=== PATIENT | male | born 1965 | race Caucasian/White ===

== ENCOUNTER → 2016-08-07 | Outpatient (CLI) | payer OTHER ==
[2016-08-07 12:49] LABS: Blood Urea Nitrogen 18 mg/dL (9-20); Lithium <0.2 mmol/L; Non-African American GFR(MDRD) >60 (>60 ml/min/1.73 sqM)
== END | disposition home or self-care (01) ==
LOC: LABWHC1 12:13
PROVIDERS: ATTEND Psychiatry & Neurology Psychiatry
DX: Z51.81 Encounter for therapeutic drug level monitoring (principal); Z79.899 Other long term (current) drug therapy
CPT/HCPCS: 36415; 80178; 82565; 84439; 84443; 84520

== ENCOUNTER 2016-10-27 16:26 | Emergency (ER) | payer OTHER ==
[2016-10-27 16:34] VITALS: BP 128/77; PULSE 88; RESP 18; TEMP 99.9
--- NOTE | 2016-10-27 16:44 | ED ---
General Adult HPI - General Chief complaint: Extremity Problem,Nontraumatic Stated complaint: Infection on hand Time Seen by Provider: 10/27/16 16:35 Source: patient, RN notes reviewed Mode of arrival: ambulatory Limitations: no limitations - History of Present Illness Initial comments: 51-year-old male presents emergency department with a chief complaint of right middle finger infection. Patient states he has some pus coming out of the infection today so he was concerned. He has noticed some redness coming off the area. Patient states he initially was injured by his dog leash and now it seems. Patient denies any cough cold runny nose with this. Patient denies any fever chills. Patient states he was concerned due to his symptoms so he thought that he should be evaluated. Patient denies any recent fever, chills, shortness of breath, chest pain, back pain, abdominal pain, nausea vomiting, numbness or tingling, dysuria or hematuria, constipation or diarrhea, headaches or visual changes, or any other current symptoms. - Related Data Previous Rx's Medication Instructions Recorded Cephalexin [Keflex] 500 mg PO Q6HR #40 cap 10/27/16 Sulfamethox-Tmp 800-160Mg [Bactrim 2 each PO Q12HR #56 tab 10/27/16 DS 800-160 mg] Allergies Allergy/AdvReac Type Severity Reaction Status Date / Time lurasidone [From Latuda] Allergy Unknown Verified 10/27/16 16:35 Review of Systems ROS Statement: Those systems with pertinent positive or pertinent negative responses have been documented in the HPI. ROS Other: All systems not noted in ROS Statement are negative. Past Medical History Past Medical History: Osteoarthritis (OA) Additional Past Medical History / Comment(s): chronic back pain, DDD, scoliosis , hairline fx to back History of Any Multi-Drug Resistant Organisms: None Reported Past Surgical History: No Surgical Hx Reported Past Psychological History: No Psychological Hx Reported, Bipolar Smoking Status: Current every day smoker Past Alcohol Use History: None Reported Past Drug Use History: None Reported General Exam - General Exam Comments Initial Comments: General: The patient is awake and alert, in no distress, and does not appear acutely ill. Neck: The neck is supple, there is no tenderness. Cardiovascular: There is a regular rate and rhythm. No murmur, rub or gallop is appreciated. Respiratory: Lungs are clear to auscultation, respirations are non-labored, breath sounds are equal. No wheezes, stridor, rales, or rhonchi. Musculoskeletal: Sensation intact with 2+ pulses at that time. full Range of motion of right elbow and right wrist and right hand. Patient does appear to have an area of fluctuation to the right lateral middle finger. 5/5 Muscle strength testing. No tenderness along the tendon. Minimal redness surrounding the area. Neurological: CN II-XII intact, There are no obvious motor or sensory deficits. Coordination appears grossly intact. Speech is normal. Skin: Skin is warm and dry and no rashes or lesions are noted. Psychiatric: Normal mood and affect. Limitations: no limitations Course Vital Signs 10/27/16 16:31 Temperature 99.9 F H Pulse Rate 88 Respiratory 18 Rate Blood Pressure 128/77 O2 Sat by Pulse 95 Oximetry Medical Decision Making - Medical Decision Making 51-year-old male presents with what appears to be a right middle finger infection. This time we did start the patient on antibiotics. We discussed follow-up we discussed return parameters. We discussed all patient's questions. He stated he understood any significant plan. Discharged home. Disposition Clinical Impression: Superficial injury of right middle finger with infection Disposition: HOME SELF-CARE Condition: Stable Instructions: Abscess (ED) Additional Instructions: Please use medication as discussed. Please follow up with family doctor if symptoms have not improved over the next two days. Please return to the emergency room if your symptoms increase or worsen or for any other concerns. Prescriptions: Cephalexin [Keflex] 500 mg PO Q6HR #40 cap Sulfamethox-Tmp 800-160Mg [Bactrim DS 800-160 mg] 2 each PO Q12HR #56 tab Referrals: Misael Moffett MD [Primary Care Provider] - 1-2 days Time of Disposition: 16:43
== END 2016-10-27 17:04 | disposition home or self-care (01) ==
LOC: EC 16:26
DX: S60.942A Unspecified superficial injury of right middle finger, initial encounter (principal); L08.9 Local infection of the skin and subcutaneous tissue, unspecified; F17.200 Nicotine dependence, unspecified, uncomplicated; Z88.8 Allergy status to other drugs, medicaments and biological substances; W22.8XXA Striking against or struck by other objects, initial encounter
CPT/HCPCS: 99283

== ENCOUNTER → 2016-12-27 | Outpatient (CLI) | payer OTHER ==
[2016-12-27 11:50] LABS: Basophils % (A) 1 %; CH 30.1; CHCM 32.6; Eosinophils # (A) 0.2 k/uL (0-0.7); Eosinophils % (A) 3 %; HCT 41.3 % (39.0-53.0); HDW 2.33; HGB 13.9 gm/dL (13.0-17.5); Luc # (Auto) 0.14; Luc % (Auto) 2; Lymphocytes # (A) 1.9 k/uL (1.0-4.8); Lymphocytes % (A) 25 %; MCH 31.3 pg (25.0-35.0); MCHC 33.8 g/dL (31.0-37.0); MCV 92.7 fL (80.0-100.0); Mean Platelet Volume 7.6; Monocytes # (A) 0.4 k/uL (0-1.0); Monocytes % (A) 6 %; Neutrophils # (A) 4.7 k/uL (1.3-7.7); Neutrophils % (A) 63 %; RBC 4.45 m/uL (4.30-5.90); RDW 13.4 % (11.5-15.5); WBC 7.4 k/uL (3.8-10.6); WBC (Perox) 8.08
[2016-12-27 12:08] LABS: Lithium 0.3 mmol/L
== END | disposition home or self-care (01) ==
LOC: LABWHC1 11:01
PROVIDERS: ATTEND Nurse Practitioner
DX: F31.5 Bipolar disorder, current episode depressed, severe, with psychotic features (principal); F43.10 Post-traumatic stress disorder, unspecified; Z79.899 Other long term (current) drug therapy
CPT/HCPCS: 36415; 80061; 80178; 82306; 84439; 84443; 85025

== ENCOUNTER → 2017-09-23 | Outpatient (CLI) | payer OTHER ==
[2017-09-23 19:47] LABS: HIV AB P24 Non-Reactive (Non-Reactive); HIV P24 AG Non-Reactive (Non-Reactive)
[2017-09-24 11:50] LABS: T4/T8 Ratio (CD4:CD8) 1.6 (1.0-3.7)
[2017-09-26 16:46] LABS: HIV-1 RNA Not detected (Not detected); HIV-1 RNA, Quant <40 Copies/mL (<40)
== END | disposition home or self-care (01) ==
LOC: LABWHC1 13:51
PROVIDERS: ATTEND Internal Medicine Infectious Disease
DX: B20 Human immunodeficiency virus [HIV] disease (principal)
CPT/HCPCS: 36415; 86360; 87390; 87536

== ENCOUNTER → 2017-10-31 | Outpatient (CLI) | payer OTHER ==
--- NOTE | 2017-10-31 10:34 | XR ---
EXAMINATION TYPE: XR knee complete bilateral DATE OF EXAM: 10/31/2017 COMPARISON: NONE HISTORY: Pain TECHNIQUE: Four views are submitted. FINDINGS: Mild narrowing the medial compartment knee joint and patellofemoral joint bilaterally. Osseous struct ures are intact. No acute fracture seen. IMPRESSION: 1. No acute fracture or dislocation. 2. Mild bilateral arthropathy.
== END | disposition home or self-care (01) ==
LOC: RADXRMAIN 09:27
PROVIDERS: ATTEND Nurse Practitioner
DX: M12.862 Other specific arthropathies, not elsewhere classified, left knee (principal); M12.861 Other specific arthropathies, not elsewhere classified, right knee; M23.50 Chronic instability of knee, unspecified knee

== ENCOUNTER → 2017-11-15 | Outpatient (CLI) | payer OTHER ==
[2017-11-15 10:36] LABS: ALT 47 U/L (21-72); AST 23 U/L (17-59); Albumin 4.3 g/dL (3.5-5.0); Alkaline Phosphatase 101 U/L (38-126); Anion Gap 8 mmol/L; Blood Urea Nitrogen 17 mg/dL (9-20); Calcium 9.5 mg/dL (8.4-10.2); Carbon Dioxide 25 mmol/L (22-30); Chloride 107 mmol/L (98-107); Glucose 100 mg/dL (74-99); Potassium 4.9 mmol/L (3.5-5.1); Sodium 140 mmol/L (137-145); Total Bilirubin 0.5 mg/dL (0.2-1.3); Total Protein 6.9 g/dL (6.3-8.2)
[2017-11-15 10:52] LABS: T4, Free (Free Thyroxine) 1.03 ng/dL (0.78-2.19)
[2017-11-15 11:47] LABS: Basophils # (A) 0.1 k/uL (0-0.2); Basophils % (A) 0 %; Eosinophils # (A) 0.4 k/uL (0-0.7); Eosinophils % (A) 3 %; HCT 46.1 % (39.0-53.0); Lymphocytes # (A) 1.6 k/uL (1.0-4.8); Lymphocytes % (A) 12 %; MCH 29.3 pg (25.0-35.0); MCHC 32.6 g/dL (31.0-37.0); MCV 89.7 fL (80.0-100.0); Mean Platelet Volume 8.5; Monocytes % (A) 8 %; Neutrophils # (A) 10.5 k/uL (1.3-7.7); Neutrophils % (A) 77 %; Platelet Count 219 k/uL (150-450); RBC 5.13 m/uL (4.30-5.90); RDW 13.4 % (11.5-15.5); WBC 13.8 k/uL (3.8-10.6)
[2017-11-15 16:31] LABS: Vitamin D 25 Hydroxy 47.8 ng/mL (30.0-100.0)
== END | disposition home or self-care (01) ==
LOC: LABWHC1 09:52
PROVIDERS: ATTEND Nurse Practitioner Acute Care
DX: E55.9 Vitamin D deficiency, unspecified (principal); R53.83 Other fatigue; R41.3 Other amnesia
CPT/HCPCS: 36415; 80053; 82306; 82607; 84207; 84439; 84443; 84481; 85025

== ENCOUNTER → 2017-12-06 | Outpatient (CLI) | payer OTHER ==
--- NOTE | 2017-12-06 22:42 | MR ---
EXAMINATION TYPE: MR brain wo con DATE OF EXAM: 12/06/2017 COMPARISON: NONE HISTORY: Fell working on house 8 years ago, Headaches with bilateral weakness and numbness per patien t. Memory loss per order. TECHNIQUE: Multiplanar, multisequence imaging of the brain and brainstem is performed without IV cont rast. FINDINGS: Diffusion weighted images demonstrate no evidence of a recent infarct or other diffusion abnormality. There is no worrisome extra-axial fluid collection. There is diffuse ventricular and sulcal prominenc e consistent with mild age-related cerebral atrophy. There are scattered foci of T2 hyperintensity se en throughout the superficial and deep white matter with more prominent confluent areas in the perive ntricular white matter. Findings most likely the basis of product of chronic small vessel ischemic ch josey in patient of this age. Midline structures demonstrate normal morphology. The craniocervical junction appears within normal limits. Normal vascular flow voids are present. The visualized sinuses are clear and the globes are i ntact. IMPRESSION: Mild diffuse age-related cerebral atrophy and moderate nonspecific white matter changes f elt to be on basis of product of chronic small vessel ischemic change.
== END | disposition home or self-care (01) ==
LOC: RADMRIMAIN 15:42
PROVIDERS: ATTEND Psychiatry & Neurology Neurology
DX: G31.1 Senile degeneration of brain, not elsewhere classified (principal); R90.89 Other abnormal findings on diagnostic imaging of central nervous system; Z88.8 Allergy status to other drugs, medicaments and biological substances
CPT/HCPCS: 70551

== ENCOUNTER → 2017-12-07 | Outpatient (CLI) | payer OTHER ==
--- NOTE | 2017-12-07 18:18 | MR ---
EXAMINATION TYPE: MR lumbar spine wo con DATE OF EXAM: 12/07/2017 COMPARISON: NONE HISTORY: Fell from house back pain TECHNIQUE: T1 and T2 axial and sagittal images of the lumbar spine are submitted. FINDINGS: There is no abnormal signal seen within the visualized spinal cord or paraspinal soft tissu es. At L1-2 there is no disc herniation or canal stenosis. Hypertrophic change of the facets. No foramina l encroachment. At L2-3 there is mild disc desiccation and hypertrophic changes facets. No canal stenosis, foraminal encroachment or disc herniation. At L3-4 there is hypertrophic change of the facets. No disc herniation, canal stenosis, or foraminal encroachment. At L4-5 there is moderate facet arthropathy. There is no disc herniation. No canal stenosis or forami nal encroachment. At L5-S1 there is facet arthropathy but no disc herniation or canal stenosis. No foraminal encroachme nt. There is heterogeneous marrow signal which is nonspecific. Alignment is anatomic. There is no evidenc e of acute marrow edema. No compression deformities. There is multilevel mild disc desiccation and de generative disc disease. IMPRESSION: 1. The level mild degenerative disc disease and facet arthropathy with no evidence of canal stenosis, disc herniation or foraminal encroachment. 2. No abnormal signal to suggest active remote marrow edema. 3. The right kidney is somewhat enlarged relative to left but is only partially included on exam. Rec ommend correlation with ultrasound. 4. There is increased signal near the conus medullaris which may be artifactual. This is not included on the axial images. It is seen at the level of T12. Recommend thoracic spine MRI.
== END | disposition home or self-care (01) ==
LOC: RADMRIMAIN 15:39
PROVIDERS: ATTEND Psychiatry & Neurology Neurology
DX: M51.36 Other intervertebral disc degeneration, lumbar region (principal); M46.96 Unspecified inflammatory spondylopathy, lumbar region; R41.3 Other amnesia; Z88.8 Allergy status to other drugs, medicaments and biological substances
CPT/HCPCS: 72148

== ENCOUNTER → 2017-12-08 | Outpatient (CLI) | payer OTHER ==
--- NOTE | 2017-12-09 06:43 | MR ---
EXAMINATION TYPE: MR cspine/tspine wo con DATE OF EXAM: 12/08/2017 COMPARISON: NONE HISTORY: Neck pain and Pain in thoracic spine per order. Headache with neck pain for 6 to 7 years cau sing pain or weakness in both arms and fingers per patient. Mid back pain for 7 years from old injury per patient. TECHNIQUE: Multiplanar, multisequence imaging of the cervical and thoracic spine are performed withou t contrast FINDINGS: C-SPINE: Exam noted suboptimal due to motion artifact degradation. Repeat imaging was performed with some improvement. FINDINGS: Coronal images show levoconvex scoliosis centered in the upper thoracic spine. Sagittal mayra ges of the cervical spine show the craniocervical junction to appear within normal limits. The cervi bob and upper thoracic spinal cord is normal in course, caliber, and signal. Straightening of cervica l spine is seen upper cervical levels on sagittal images.. The vertebral body heights are normal. Th ere is moderate disc space narrowing with some posterior ossific fusion C2-C3 level. There is moderat e anterior disc space narrowing C3-C4 level. Posterior spur disc complexes are effacing anterior thec al sac C3-C4 and C5-C6 levels on sagittal images. Small hemangioma posterior superior C2 level is see n. There are heterogeneous endplate changes at C3-C4 level. Axial images at C2-C3 level shows vertical intensity felt to reflect prominent ligament, bilateral ne ural foramina are patent. Axial images at C3-C4 level show broad-based posterior spur disc complex effacing anterior thecal sac and causing moderate bilateral neural foraminal narrowing on axial image 50. Axial images at C4-C5 level are felt within normal limits. Axial images at C5-C6 level show broad-based right paracentral spur disc complex effacing anterolater al thecal sac on axial image 32, there is asymmetric mild to moderate right-sided neural foraminal na rrowing. Left-sided neural foramen is patent. Axial images at C6-C7 level show broad-based posterior disc protrusion mildly effacing anterior theca l sac, bilateral neural foramina are patent. Axial images at C7-T1 level are felt within normal limits. IMPRESSION: Straightening of cervical spine upper cervical levels. Most prominent degenerative change s C3-C4 and C5-C6 level are seen as detailed above. T-SPINE: Spinal cord shows normal course, caliber, and signal as it courses the thoracic spine. Vertebral bod y heights are satisfactory. Slight levoconvex scoliotic curvature centered in the upper thoracic spin e is present. Disc space heights are fairly well-maintained. No large posterior disc herniations are seen on sagittal images. Bone marrow signal intensity is preserved. Mild multilevel anterior spurring in the mid to lower thoracic spine is noted. Review of the axial images shows no significant spinal canal stenosis or neural foraminal narrowing a t any thoracic level. No suspicious incidental finding seen in the visualized thorax or upper abdome n. IMPRESSION: Mild multilevel anterior spurring mid to lower thoracic spine. No suspicious focal disc herniations are evident.
== END | disposition home or self-care (01) ==
LOC: RADMRIMAIN 15:40
PROVIDERS: ATTEND Psychiatry & Neurology Neurology
DX: M47.812 Spondylosis without myelopathy or radiculopathy, cervical region (principal); M46.04 Spinal enthesopathy, thoracic region; Z88.8 Allergy status to other drugs, medicaments and biological substances
CPT/HCPCS: 72141; 72146

== ENCOUNTER 2018-11-16 12:37 | Emergency (ER) | payer OTHER ==
[2018-11-16 12:47] VITALS: BP 148/88; PULSE 83; RESP 16; TEMP 97.9
[2018-11-16] MEDS ORDERED: DEXAMETHASONE SOD PHOSPHATE 10 MG/ML 1 ML VIAL IM STA (13:26)
[2018-11-16] MEDS ORDERED: PERMETHRIN 5% CREAM 60 GM TUBE TOPICAL ONE (13:26)
[2018-11-16] MEDS ORDERED: hydrOXYzine HCL 25 MG TAB PO STA (13:27)
[2018-11-16] MEDS ORDERED: FAMOTIDINE 20 MG TAB PO STA (13:27)
--- NOTE | 2018-11-16 13:28 | ED ---
Skin/Abscess/FB HPI - General Chief complaint: Skin/Abscess/Foreign Body Stated complaint: rash Time Seen by Provider: 11/16/18 12:54 Source: patient, RN notes reviewed, old records reviewed Mode of arrival: ambulatory Limitations: no limitations - History of Present Illness Initial comments: This is a 53-year-old male the ER for evaluation presents today for evaluation regards to rash. Bilateral upper extremity rash itchy rash, no known ALLERGIES complaint, patient denies any travel, fevers. Rash is itchy not painful. No other complaints MD complaint: rash (Bilateral upper extremity) -: days(s) Tetanus Up to Date: yes Location: E, RUE, L hand, R hand Severity: moderate Severity scale (1-10): 4 Quality: other (KS) Consistency: constant Improves with: none Worsens with: none Context: none Associated symptoms: denies other symptoms Treatments Prior to Arrival: none - Related Data Home Medications Medication Instructions Recorded Confirmed Albuterol Inhaler [Ventolin Hfa 2 puff INHALATION RT-Q6H PRN 11/16/18 11/16/18 Inhaler] Aspirin EC [Ecotrin Low Dose] 81 mg PO DAILY 11/16/18 11/16/18 Budesonide-Formot 160-4.5 Mcg 1 puff INHALATION RT-BID 11/16/18 11/16/18 [Symbicort 160-4.5 Mcg Inhaler] Ergocalciferol [Vitamin D2] 50,000 unit PO Q14D 11/16/18 11/16/18 Furosemide [Lasix] 20 mg PO DAILY 11/16/18 11/16/18 HYDROcodone/APAP 7.5-325MG [[place] 1 tab PO BID PRN 11/16/18 11/16/18 7.5-325] Lisinopril [Zestril] 20 mg PO DAILY 11/16/18 11/16/18 [place] Carbonate 1,200 mg PO HS 11/16/18 11/16/18 Loratadine [Claritin] 10 mg PO DAILY 11/16/18 11/16/18 Metoprolol Tartrate 25 mg PO BID 11/16/18 11/16/18 Montelukast [Singulair] 10 mg PO DAILY 11/16/18 11/16/18 OLANZapine [ZyPREXA] 5 mg PO HS 11/16/18 11/16/18 Potassium Chloride ER [K-Dur 20] 20 meq PO MOWEFR 11/16/18 11/16/18 Ranitidine HCl [Zantac] 150 mg PO BID 11/16/18 11/16/18 Varenicline [Chantix Continuing 1 mg PO BID 11/16/18 11/16/18 Pack] hydrOXYzine PAMOATE [Vistaril] 50 mg PO BID PRN 11/16/18 11/16/18 traZODone HCL [Desyrel] 200 mg PO HS 11/16/18 11/16/18 Allergies Allergy/AdvReac Type Severity Reaction Status Date / Time lurasidone [From Latuda] Allergy Unknown Verified 11/16/18 13:19 Review of Systems ROS Statement: Those systems with pertinent positive or pertinent negative responses have been documented in the HPI. ROS Other: All systems not noted in ROS Statement are negative. Past Medical History Past Medical History: Osteoarthritis (OA) Additional Past Medical History / Comment(s): chronic back pain, DDD, scoliosis, hairline fx to back History of Any Multi-Drug Resistant Organisms: None Reported Past Surgical History: No Surgical Hx Reported Past Psychological History: Bipolar Smoking Status: Current every day smoker Past Alcohol Use History: None Reported Past Drug Use History: None Reported General Exam - General Exam Comments Initial Comments: She is in threes both upper extremities. Again nature with some secondary excoriations, on fingers and in between figure webs Limitations: no limitations General appearance: alert, in no apparent distress Head exam: Present: atraumatic, normocephalic, normal inspection Eye exam: Present: normal appearance, PERRL, EOMI. Absent: scleral icterus, conjunctival injection, periorbital swelling ENT exam: Present: normal exam, mucous membranes moist Neck exam: Present: normal inspection. Absent: tenderness, meningismus, lymphadenopathy Respiratory exam: Present: normal lung sounds bilaterally. Absent: respiratory distress, wheezes, rales, rhonchi, stridor Cardiovascular Exam: Present: regular rate, normal rhythm, normal heart sounds. Absent: systolic murmur, diastolic murmur, rubs, gallop, clicks GI/Abdominal exam: Present: soft, normal bowel sounds. Absent: distended, tenderness, guarding, rebound, rigid Extremities exam: Present: normal inspection, full ROM, normal capillary refill. Absent: tenderness, pedal edema, joint swelling, calf tenderness Back exam: Present: normal inspection Neurological exam: Present: alert, oriented X3, CN II-XII intact Psychiatric exam: Present: normal affect, normal mood Skin exam: Present: warm, dry, intact, normal color. Absent: rash Course Vital Signs 11/16/18 12:46 Temperature 97.9 F Pulse Rate 83 Respiratory 16 Rate Blood Pressure 148/88 O2 Sat by Pulse 98 Oximetry - Reevaluation(s) Reevaluation #1: 11/16/18 13:33 Medical records reviewed Reevaluation #2: 11/16/18 13:33 Patient spoke at length regarding care and scabies care, questions are answered Medical Decision Making - Medical Decision Making 53 male the ER for evaluation, clinical diagnosis of scabies, we'll treat appropriately and discharged home Disposition Clinical Impression: Scabies Disposition: HOME SELF-CARE Condition: Good Instructions (If sedation given, give patient instructions): Scabies (ED) Is patient prescribed a controlled substance at d/c from ED?: No Referrals: [facility] [Primary Care Provider] - 1-2 days
== END 2018-11-16 13:50 | disposition home or self-care (01) ==
LOC: SUPCPDRO 12:37 → EC 12:37
DX: B86 Scabies (principal); F31.9 Bipolar disorder, unspecified; F17.200 Nicotine dependence, unspecified, uncomplicated; Z79.82 Long term (current) use of aspirin; Z79.51 Long term (current) use of inhaled steroids; Z79.899 Other long term (current) drug therapy; Z88.8 Allergy status to other drugs, medicaments and biological substances
CPT/HCPCS: 99283; 96372; J1100